=== PATIENT | female | born 2005 | race African-American/Black ===

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

== ENCOUNTER 2024-04-18 13:23 | Emergency (ER) | payer OTHER, SELFPAY ==
--- NOTE | ~2024-04-18 | CT_ITS ---
CT abdomen pelvis w con Ordering provider: Babar Belle APRN History: 19 years Female with . abd pain n/v . Comparison: None. Technique: CT abdomen and pelvis with IV and without oral contrast. Automated exposure control and it erative reconstruction technique were employed. The dose-length product was 265.39 mGy-cm. 100 mL Omn ipaque 350 was given IV. Findings: VISUALIZED LOWER CHEST: Normal. UPPER ABDOMINAL ORGANS: Liver: Normal. Gallbladder: Normal. Spleen: Normal. Stomach/duodenum: Normal. Pancreas: Normal. Adrenals: Normal. Kidneys: Normal. PELVIC ORGANS: The bladder is normal. Minimal fluid is seen in the uterus. BOWEL AND MESENTERY: Colon: No evidence diverticulitis. Fecal material is loaded in the colon and rectum which may indicat e constipation. No evidence of appendicitis. Small Bowel: Normal. No obstruction. Peritoneum/mesentery: No free air or free fluid. No mesenteric lymphadenopathy. RETROPERITONEUM: Normal aorta. No retroperitoneal lymphadenopathy. MUSCULOSKELETAL: Superficial soft tissues: The superficial soft tissues are normal. Bones: Normal spine. IMPRESSION: 1. No acute abdominal process with no evidence of appendicitis, diverticulitis or intestinal obstruc tion. No renal stones. 2. Impacted fecal material in the rectum which may indicate constipation. 3. Minimal fluid in the uterine cavity. Correlate with menstrual cycle. . Reviewed, dictated and finalized at location A. IMPRESSION: 1. No acute abdominal process with no evidence of appendicitis, diverticulitis or intestinal obstruction. No renal stones. 2. Impacted fecal material in the rectum which may indicate constipation. 3. Minimal fluid in the uterine cavity. Correlate with menstrual cycle. .
[2024-04-18 14:01] VITALS: BP 104/69; PULSE 113; RESP 17; TEMP 37.7; O2SAT 99
--- NOTE | 2024-04-18 14:25 | ECG_ITS ---
Test Date: 2024-04-18 15:05:58 Measurements Intervals [place] Rate: 91 P: 63 KS: 173 QRS: 60 QRSD: 97 T: 70 QT: 347 QTc: 429 Interpretive Statements SINUS RHYTHM INCOMPLETE RIGHT BUNDLE BRANCH BLOCK BORDERLINE ECG No previous ECG available for comparison Electronically Signed On 04-18-2024 15:10:45 CDT by Colby Iglesias D.O.
--- NOTE | 2024-04-18 14:25 | ED.ABDPAIN ---
HPI - Abdominal Pain General Chief Complaint: Abdominal Pain Stated Complaint: abd pain Time Seen by Provider: 04/18/24 14:05 Source: patient Mode of arrival: ambulatory Limitations: no limitations History of Present Illness HPI narrative: Mery is a 19-year-old female patient presenting to the emergency room today with complaints of body aches, dizziness, mild abdominal discomfort, chills, and vomiting. Has a temperature 37.7? C in the ER today. She feels unsteady on her feet. When she goes to stand she feels as though she is falling back. Symptoms have been going on for 3 days. Mother is being seen in the ER for very similar symptoms. Related Data Allergies Allergy/AdvReac Type Severity Reaction Status Date / Time No Known Allergies Allergy Verified 04/18/24 14:04 Review of Systems Review of Systems: Pertinent positives per HPI. Patient denies any fever, chills, rash, headache, visual changes, dizziness, cough, runny nose, sore throat, shortness of breath, chest pain, palpitations, nausea, vomiting, diarrhea, constipation, abdominal pain, or any urinary issues. PMFSH Comments At the time of my signature, I reviewed and agree with the nursing past medical, surgical, social, and family history. There is no relevant family history pertinent to the patient complaint. Exam Narrative: General: Well-developed, well nourished, in no apparent distress. Head: Normocephalic, atraumatic. Cardio: Regular rate and rhythm, s1 and s2 normal, no murmur appreciated. Resp: Clear to auscultation bilaterally, no rhonchi, rales, wheezing or rubs. Abdomen: Soft, pliable, bowel sounds present in all quadrants, mild generalized tender to palpation, no organomegly, no CVAT tenderness. Musculoskeletal: No deformity, non-tender to palpation, grossly normal range of motion, muscle strength strong and equal, peripheral pulse strong, no edema, no cyanosis, normal gait and station Neuro: Alert and oriented x4 with normal speech, no focal deficits, cranial nerves I through XII intact, muscle strength 5 out of 5, sensation intact bilaterally, negative Romberg test Course Course Emergency Course: Portions of this record may have been created with voice recognition software. Vital Signs Vital signs: Vital Signs Temperature 37.7 C H 04/18/24 14:01 Pulse Rate 113 H 04/18/24 14:01 Respiratory Rate 17 04/18/24 14:01 Blood Pressure 104/69 04/18/24 14:01 Pulse Oximetry 99 04/18/24 14:01 Oxygen Delivery Room Air 04/18/24 14:01 Temperature 37.7 C H 04/18/24 14:01 Pulse Rate 113 H 04/18/24 14:01 Respiratory Rate 17 04/18/24 14:01 Blood Pressure 104/69 04/18/24 14:01 Pulse Oximetry 99 04/18/24 14:01 Oxygen Delivery Room Air 04/18/24 14:01 Vital signs reviewed MDM - Abdominal Pain MDM Narrative Medical decision making narrative: At the time of visit patient is resting comfortably on the exam table. Patient appears to be nontoxic. EKG: EKG shows normal sinus rhythm with heart rate of 91 beats per minute. No ST elevation, depression, or T-wave inversion. Labs: CBC shows white blood cell count of 6.7, H&H 11.4 and 33.8, platelet counts 108, chemistry shows sodium 134, potassium 3.4, chloride of 99, when excited 24, BUN 12, creatinine 1.1, GFR greater than 60, glucose 135, liver function test within normal limits, lipase is 24, urinalysis shows cloudy urine with 2+ protein 1+ ketone, 1+ bilirubin, and a trace of leukocytes,urine test was negative for , COVID, flu, and RSV testing were negative. Diagnostics: CT of the abdomen with contrast shows likely constipation. No other acute intra-abdominal process Medications given: 4 mg of Zofran and 2 L of normal saline IV Plan: I suspect patient has constipation, anemia, thrombocytopenia, viral syndrome, and dehydration.Supportive measures were discussed with the patient and they voiced understanding discharge instructions and agrees to tr
[2024-04-18 14:51] LABS: Basophils Percent Auto 0.3 % (0.2-1.2); Hematocrit 33.8 % (37.0-47.0); Hemoglobin 11.4 g/dL (12.0-15.0); Immature Granulocyte Absolute 0.05 K/mm3 (0.00-0.031); Immature Granulocyte Percent A 0.7 % (0-0.5); Immature Platelet Fraction Pct 1.3 % (0.9-11.2); Lymphocytes Absolute Auto 0.82 K/mm3 (0.9-3.2); Lymphocytes Percent Auto 12.2 % (18.3-44.2); Mean Corpuscular HGB Conc 33.7 g/dl (32-36); Mean Corpuscular Hemoglobin 28.4 pg (26-34); Mean Corpuscular Volume 84.3 fl (80-100); Mean Platelet Volume 8.5 fl (7.4-10.4); Monocytes Absolute Auto 1.1 K/mm3 (0.1-0.6); Monocytes Percent Auto 16.7 % (2.6-8.5); Neutrophils Absolute Auto 4.7 K/mm3 (1.3-6.7); Neutrophils Percent Auto 70.1 % (45.5-73.1); Platelet Count Result 108 k/mm3 (150-375); Red Blood Count 4.01 M/mm3 (4.2-5.4); Red Cell Distribution Width 12.7 % (11.5-14.5); White Blood Count 6.7 K/mm3 (4.5-10.0)
[2024-04-18 14:58] LABS: Alanine Aminotransferase 17 U/L (6-35); Albumin Level 3.9 g/dL (3.5-5.1); Alkaline Phosphatase 46 U/L (38-126); Anion Gap 11 mmol/L (4-12); Aspartate Amino Transferase 25 U/L (14-36); Bilirubin,Total 1.2 mg/dL (0.2-1.3); Blood Urea Nitrogen 12 mg/dL (7-17); Calcium 8.4 mg/dL (8.4-10.2); Carbon Dioxide 24 mmol/L (22-30); Chloride 99 mmol/L (98-107); Estimated CRCL calculation 88 ml/min; Estimated Glomerular Filt Rate > 60; Glucose 135 mg/dL (65-110); Lipase 24 U/L (23-300); Potassium 3.4 mmol/L (3.4-5.0); Sodium 134 mmol/L (137-145)
[2024-04-18] MEDS: ONDANSETRON INJ 4 MG/2 ML VIAL IV PUSH (15:09)
[2024-04-18] MEDS: SODIUM CHLORIDE 0.9% IV 1,000 ML 999 ML IV CONT ×2 (15:09→17:44)
[2024-04-18 15:14] VITALS: BP 101/74; PULSE 87; RESP 14; O2SAT 99
[2024-04-18 15:29] LABS: Influenza A QL RT-PCR Negative (Negative); Influenza B QL RT-PCR Negative (Negative); RSV RNA, RT-PCR Negative (Negative); SARS-CoV-2 RNA PCR Negative (Negative)
[2024-04-18 16:24] VITALS: BP 100/64; PULSE 76; RESP 14; O2SAT 99
[2024-04-18 16:25] LABS: BEDSIDEPREGUCG Negative
[2024-04-18 16:30] LABS: Appearance Urine Cloudy (Clear); Bacteria Urine None Seen /hpf; Bilirubin Urine 1+ (Negative); Blood Urine Negative (Negative); Color Urine Dark Yellow (Yellow); Glucose Urine UA Negative (Negative); Ketones Urine 1+ mg/dL (Negative); Leukocyte Esterase Ur Trace LEU/UL (Negative); Mucus Urine Present /lpf; Need Manual Microscopic Reviewed; Nitrate Urine Negative (Negative); Protein Urine 2+ mg/dL (Negative); RBC Urine 0-2 /hpf (0-2); Specific Grav Ur 1.028 (1.001-1.035); Squamous Epithelial Cell Urine Few /hpf (Few); WBC Urine 0-5 /hpf (0-3)
[2024-04-18 16:31] LABS: Add Urine Microscopic? YES
[2024-04-18 17:23] VITALS: BP 102/59; PULSE 71; RESP 14; O2SAT 99
[2024-04-18 18:18] VITALS: BP 99/62; PULSE 63; RESP 14; O2SAT 100
[2024-04-18] MEDS: ACETAMINOPHEN 500 MG TABLET 1000 MG PO (18:50)
== END 2024-04-18 18:50 | disposition home or self-care (01) ==
PROVIDERS: Emergency Provider Nurse Practitioner Family; PCP Physician Assistant
DX: B34.9 Viral infection, unspecified (principal); E86.0 Dehydration; K59.00 Constipation, unspecified; D75.839 Thrombocytosis, unspecified; D64.9 Anemia, unspecified; Z20.822 Contact with and (suspected) exposure to COVID-19
CPT/HCPCS: 36415; 74177; 80053; 81001; 81025; 83690; 85025; 85055; 87637; 93005; 96361; 96374; 99284; A9270; J2405; J7030; Q9967

== ENCOUNTER 2024-04-20 12:23 | Inpatient (IN) | payer OTHER, SELFPAY ==
[2024-04-20] VITALS (29 sets, daily range): BP systolic 72–111; BP diastolic 39–99; PULSE 81–134; RESP 15–30; TEMP 36.4–37.1; O2SAT 97–100; BMI 22.3
--- NOTE | ~2024-04-20 | CT_ITS ---
EXAMINATION: CT abdomen pelvis w con DATE: 04/20/2024 16:17 INDICATION: Diarrhea. TECHNIQUE: Computed tomography (CT) of the abdomen and pelvis was performed with 100 mL Omnipaque 350 intravenous contrast. Automated exposure control and iterative reconstruction technique were employe d. The dose-length product was 278.38 mGy-cm. COMPARISON: CT abdomen and pelvis 04/18/2024 FINDINGS: The visualized portions of the lung bases demonstrate minimal atelectasis. No pleural effus ion. The heart size is normal. No pericardial effusion. The liver, gallbladder, spleen, pancreas, adr enal glands, and kidneys are normal. There are no dilated loops of bowel. The appendix is normal. The re are no pathologically enlarged lymph nodes. There is physiologic fluid in the pelvis. The bones ar e unremarkable. IMPRESSION: 1. No etiology for the patient's symptoms. Reviewed, dictated and finalized at location A.
--- NOTE | ~2024-04-20 | XR_ITS ---
XR chest 2V Ordering provider: Osbaldo Funk MD History: 19 years Female with . malaria . Comparison: July 11, 2022 FINDINGS: MEDIASTINUM: The cardiac silhouette is not enlarged. LUNGS: No infiltrates, or pneumothorax. Blunting of the left costophrenic angle suggestive of minimal effusion. OTHER: No free air under the diaphragm. IMPRESSION: Minimal left pleural effusion. Reviewed, dictated and finalized at location A.
[2024-04-20] MEDS: ONDANSETRON INJ 4 MG/2 ML VIAL IV PUSH ×2 (12:56→20:49)
[2024-04-20] MEDS: SODIUM CHLORIDE 0.9% IV 3,000 ML 999 ML IV CONT (12:56)
[2024-04-20 13:14] LABS: Basophils Percent Auto 0.5 % (0.2-1.2); Hematocrit 33.7 % (37.0-47.0); Hemoglobin 11.2 g/dL (12.0-15.0); Immature Granulocyte Absolute 0.06 K/mm3 (0.00-0.031); Immature Granulocyte Percent A 1.4 % (0-0.5); Immature Platelet Fraction Pct 3.4 % (0.9-11.2); Lymphocytes Absolute Auto 0.76 K/mm3 (0.9-3.2); Mean Corpuscular HGB Conc 33.2 g/dl (32-36); Mean Corpuscular Hemoglobin 28.1 pg (26-34); Mean Corpuscular Volume 84.5 fl (80-100); Mean Platelet Volume 10.4 fl (7.4-10.4); Monocytes Absolute Auto 0.2 K/mm3 (0.1-0.6); Neutrophils Absolute Auto 3.2 K/mm3 (1.3-6.7); Neutrophils Percent Auto 75.1 % (45.5-73.1); Nucleated Red Blood Cells Perc 0.5 % (0.0-0.2); Platelet Count Result 50 k/mm3 (150-375); Red Blood Count 3.99 M/mm3 (4.2-5.4); Red Cell Distribution Width 13.6 % (11.5-14.5); White Blood Count 4.2 K/mm3 (4.5-10.0)
[2024-04-20 13:35] LABS: Alanine Aminotransferase 20 U/L (6-35); Albumin Level 3.4 g/dL (3.5-5.1); Alkaline Phosphatase 61 U/L (38-126); Anion Gap 12 mmol/L (4-12); Aspartate Amino Transferase 39 U/L (14-36); Bilirubin,Total 2.4 mg/dL (0.2-1.3); Blood Urea Nitrogen 14 mg/dL (7-17); Calcium 8.4 mg/dL (8.4-10.2); Carbon Dioxide 21 mmol/L (22-30); Chloride 101 mmol/L (98-107); Estimated CRCL calculation 71 ml/min; Estimated Glomerular Filt Rate > 60; Glucose 121 mg/dL (65-110); Potassium 2.7 mmol/L (3.4-5.0); Sodium 134 mmol/L (137-145)
[2024-04-20 13:51] LABS: BEDSIDEPREGUCG Negative
[2024-04-20 14:06] LABS: Influenza A QL RT-PCR Negative (Negative); Influenza B QL RT-PCR Negative (Negative); RSV RNA, RT-PCR Negative (Negative); SARS-CoV-2 RNA PCR Negative (Negative)
[2024-04-20] MEDS: POTASSIUM CHLORIDE INJ 40 MEQ in SODIUM CHLORIDE 0.9% IV 500 ML 130 MEQ IVPB (14:10)
[2024-04-20 14:12] LABS: Amphetamine Screen Urine Negative (Negative); Barbiturate Screen Urine Negative (Negative); Benzodiazepines Screen Urine Negative (Negative); Cannabinoid Screen Urine Negative (Negative); Cocaine Screen Urine Negative (Negative); Methadone Screen Urine Negative (Negative); Opiate Screen Urine Negative (Negative); Phencyclidine Screen Urine Negative (Negative)
[2024-04-20 14:13] LABS: Appearance Urine Turbid (Clear); Bacteria Urine None Seen /hpf; Bilirubin Urine 2+ (Negative); Blood Urine Trace (Negative); Color Urine Orange (Yellow); Glucose Urine UA Negative (Negative); Granular Casts Urine Present /lpf; Ketones Urine Trace mg/dL (Negative); Leukocyte Esterase Ur 1+ LEU/UL (Negative); Need Manual Microscopic Reviewed; Nitrate Urine Positive (Negative); Non Pathogenic Casts >20; Protein Urine 2+ mg/dL (Negative); RBC Urine 0-2 /hpf (0-2); Specific Grav Ur 1.022 (1.001-1.035); Squamous Epithelial Cell Urine Many /hpf (Few); pH Urine 5.5 (5.0-9.0)
[2024-04-20 14:14] LABS: Lipase 59 U/L (23-300); Magnesium 1.5 mg/dL (1.6-2.3)
[2024-04-20 14:14] LABS: Add Urine Microscopic? YES
--- NOTE | 2024-04-20 14:23 | PC.NURSE ---
Pt refusing PO potassium a this time due to not having much oral intake recently. EDP Dr. Saini aware and OK with holding PO potassium at this time since IV potassium is currently running.
[2024-04-20] MEDS: LACTATED RINGERS 1,000 ML 999 ML IV CONT (15:27)
[2024-04-20] MEDS: METOCLOPRAMIDE HCL INJ 10 MG/2 ML VIAL IV PUSH (15:27)
--- NOTE | 2024-04-20 15:38 | ED.GENADULT ---
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 Patient was seen on the along with her mother when both had similar symptoms. That time she was rehydrated and discharged back home. However says that she has continued to have n/v/d. She is unable to tolerate foods but has been drinking sips of water. She has now become more weak. She then re-presented to the ED for evaluation. She denies fevers chills chest pain difficulty breathing or abdominal pain. No urinary symptoms. Patient recently travel to [facility] 3 weeks ago. Symptoms started 2 weeks after she returned home. Related Data Allergies Allergy/AdvReac Type Severity Reaction Status Date / Time No Known Allergies Allergy Verified 04/20/24 12:23 Exam Narrative: APPEARANCE: Listless Head: atraumatic. EYES: EOMI, NOSE: Atraumatic NECK: Trachea midline RESPIRATORY: Tachypneic, clear to auscultation CARDIOVASCULAR: Tachycardic, no peripheral edema ABDOMINAL: Soft nontender no guarding or rebound MUSCULOSKELETAl: No obvious deformities NEURO: Alert. Moving 4/4 extremities SKIN:: Warm, dry. Normal color PSYCHIATRIC: Normal affect Course Vital Signs Vital signs: Vital Signs Temperature 98.8 F 04/20/24 12:24 Pulse Rate 134 H 04/20/24 12:24 Respiratory Rate 20 04/20/24 12:24 Blood Pressure 84/49 L 04/20/24 12:24 Pulse Oximetry 99 04/20/24 12:24 Oxygen Delivery Room Air 04/20/24 12:24 Temperature 98.0 F 04/20/24 14:26 Pulse Rate 112 H 04/20/24 15:31 Respiratory Rate 24 H 04/20/24 15:31 Blood Pressure 86/45 L 04/20/24 15:31 Pulse Oximetry 100 04/20/24 15:31 Oxygen Delivery Room Air 04/20/24 12:24 Medical Decision Making [facility] Narrative Medical decision making narrative: -Course: This is a 19-year-old female presenting with 5 days of nausea vomiting diarrhea. On arrival to ED the patient was hypotensive at 80/50, tachycardic in the 130s and listless. Patient has multiple electrolyte abnormalities including hypokalemia 2.7, magnesium 1.5 phosphorus of 1.0. These are being repleted. CT abdomen pelvis negative. Urine had 6-10 white blood cells with +1 leuk esterase and positive nitrites. Patient will be started ceftriaxone. After 4 L of crystalloid the patient's repeat blood pressure is 92/57. Patient started on maintenance fluid. Patient will be admitted to the hospital for further management. -DDX includes but is not limited to: Profound dehydration, gastroenteritis, electrolyte abnormalities, traveler's diarrhea -Independent interpretation of studies: CBC significant for platelet count of 50. This is down from 108 on her last admission. Potassium 2.7. Magnesium 1.5. Phosphorus 1.0. These are being repleted. Urine with 6-10 white blood cells, +1 leuk esterase and positive nitrates. Were many squamous cells but should be covered with ceftriaxone until culture results for return. UDS negative. Viral swabs negative CT abdomen pelvis unremarkable. -Discussion of Management/Consultants: Flores -Shared decision making / Disposition:admitted. Vital Signs Vital Signs: Vital Signs Temperature 98.8 F 04/20/24 12:24 Pulse Rate 134 H 04/20/24 12:24 Respiratory Rate 20 04/20/24 12:24 Blood Pressure 84/49 L 04/20/24 12:24 Pulse Oximetry 99 04/20/24 12:24 Oxygen Delivery Room Air 04/20/24 12:24 Temperature 98.0 F 04/20/24 14:26 Pulse Rate 112 H 04/20/24 15:31 Respiratory Rate 24 H 04/20/24 15:31 Blood Pressure 86/45 L 04/20/24 15:31 Pulse Oximetry 100 04/20/24 15:31 Oxygen Delivery Room Air 04/20/24 12:24 Lab Data 04/20/24 12:54 04/20/24 12:54 Labs: Lab Results 04/20/24 04/20/24 07
[2024-04-20] MEDS: POTASSIUM/PHOSPHORUS/SODIUM 1.5 GM PACKET 1 PACKET PO (16:03)
[2024-04-20] MEDS: LACTATED RINGERS 1,000 ML 150 ML IV CONT (16:34)
[2024-04-20 17:08] LABS: Anion Gap 9 mmol/L (4-12); Blood Urea Nitrogen 12 mg/dL (7-17); Calcium 6.9 mg/dL (8.4-10.2); Carbon Dioxide 21 mmol/L (22-30); Chloride 106 mmol/L (98-107); Estimated CRCL calculation 83 ml/min; Estimated Glomerular Filt Rate > 60; Glucose 106 mg/dL (65-110); Magnesium 1.4 mg/dL (1.6-2.3); Phosphorus 2.5 mg/dL (2.5-4.5); Potassium 3.5 mmol/L (3.4-5.0); Sodium 136 mmol/L (137-145)
[2024-04-20] MEDS: CALCIUM GLUC 2,000 MG/NS 100ML 2,000 MG/100 ML BAG 100 MG IVPB (18:08)
--- NOTE | 2024-04-20 18:15 | ADMGEN ---
This patient, Mery Guido, was admitted to IMU Room 201-01. Patient/family oriented to hospital policies and general routines including ID bracelet, bed and alarms, visiting hours, pain management, procedures, bathroom and other care routines, personal items, smoking policy, room service/diet, and visiting hours. Information on how to activate the Rapid Response Team has been discussed. Patient/Family are encouraged to report perceived risks to care and to ask questions if they do not understand what they are told or what they should do.
--- NOTE | 2024-04-20 18:20 | PC.NURSE ---
Patient arrived to the floor at 1800pm, via stretcher from the ER. Alert and oriented, very pleasant young lady in no acute distress at this time. Vital signs stable, (see vital sign flow sheet). Currently on room air, lung sounds clear on auscultation, however patient is noted to have a harsh sounding cough. Heart rate is 96, in normal sinus rhythm at this time. Medications that were previously ordered to be given in the ER were started on admission to the floor, (see MAR). States last bowel movement was today 04/20/24 (x2). No vomiting noted at this time. The patient is complaining of abdominal discomfort. Clear, soda given to the patient and sips taken. Tolerating at this time. Skin is intact. Patient made aware of plan of care including current medication regimen and denies questions at this time.
[2024-04-20] MEDS: MAGNESIUM SULF 2 GM/WATER 50ML 2 GM/50 ML BAG IVPB (18:22)
[2024-04-20] MEDS: ALBUMIN HUMAN 5% 25 GM/500 ML BTL IV CONT (20:53)
--- NOTE | 2024-04-20 21:22 | PM.IMHP ---
H&P: HPI History of Present Illness Date/Time: 04/20/24 19:00 Chief Complaint: Nausea and vomiting. Narrative: This is a very pleasant and previously healthy 19-year-old female who presented to the emergency department via private vehicle for evaluation of nausea and vomiting. The patient provides the following history. She and her mother were in [place] from March 29 through April 13 and they both fell ill 3 days after they returned. Symptoms include headache, dry cough, mild shortness of breath, chills, sweats, low-grade fever, anorexia, mild abdominal discomfort, nausea, vomiting, and 2 loose yellow stools yesterday. She was seen in the ED 2 days ago for evaluation and it was felt that she likely had a viral syndrome. She received supportive care and was discharged home with close follow-up and reasons to return. Unfortunately she continues to feel poorly. She has not even been able to hold down sips of water for longer than a few minutes, she is increasingly weak, and is getting lightheaded and dizzy on standing. She denies syncope, confusion, photophobia, neck pain, otalgia, odynophagia, jaundice, rash, joint swelling, epistaxis, gingival bleeding, hemoptysis, melena, hematochezia, hematuria, and dysuria. She did not take chemoprophylaxis for malaria and denies receiving vaccinations prior to traveling to [facility]. Mosquitos were bad and she had many bites. She denies tick bites and sand fly bites. In the ED: She was afebrile on arrival. Blood pressures have been in the mid 80s to low 100 systolic. She is tachycardic with heart rates in the low 100s. Labs are significant for a WBC count of 4.2, hemoglobin 11.2, hematocrit 33.7%, platelet 50, sodium 134, potassium 2.7, chloride 101, carbon dioxide 21, anion gap 12, BUN 14, creatinine 1.30, glucose 121, phosphorus 1.0, magnesium 1.5, total bilirubin 2.4, AST 39. Urinalysis was positive for 2+ protein, trace ketones, nitrates, 1+ leukocyte esterase, 2+ bilirubin, and 6 to 10 WBCs. No bacteria and many squamous cells were seen on microscopy. CT of the abdomen and pelvis was without acute findings. Review of Systems Review of Systems: 12 systems were reviewed and are negative except for as per HPI. [facility] Past Medical History Medical History (Updated 04/20/24 @ 22:17 by Sophia Carpio PA-C) No significant past medical history Surgical History Surgical History (Updated 04/20/24 @ 21:59 by Sophia Carpio PA-C) No history of previous surgery Family History Family History Other No family history of disorders Social History Social History (Updated 04/20/24 @ 22:00 by Sophia Carpio PA-C) Social History: Surrogate medical decision maker: Isha James, mother. Code status: Full code. Smoking status: Never smoker Alcohol intake: never Substance use: never Substance use type: does not use Do You Feel Safe in your Home?: Yes Lack of Transportation: No Lack of Food: Never True Current Housing: I Have Housing Concerned About Future Housing: YES Difficulty Paying Gas/Electric Bills: YES Difficulty Paying for Meds: YES Currently Unemployed: No Education: Decline to Answer Difficulty w/ Childcare or Family Care: No Additional living arrangements comments: Lives with mother in [place]. Additional occupation/education comments: Student at [employer] studying sciences/[employer]. She wants to be an orthopedic surgeon. Spiritual care concerns: No Meds Home Medications and Allergies Home Medications Medication Instructions Recorded Confirmed Type acetaminophen 325 mg tablet 325 mg PO Q6H PRN Fever Or Pain 04/20/24 04/20/24 History (Tylenol) ibuprofen 200 mg tablet 400 mg PO Q6H PRN Fever Or Pain 04/20/24 04/20/24 History Allergies Allergy/AdvReac Type Severity Reaction Status Date / Time No Known Allergies Allergy Verified 04/20/24 12:23 Vital Signs Vital Si
[2024-04-20 22:46] LABS: Immature Reticulocyte Fraction 8.6 % (3.0-15.9); Reticulocyte Percent 2.66 % (0.7-4.3); Reticulocytes Absolute 0.08 10^6/uL (0.02-0.10)
[2024-04-20 22:56] LABS: Bilirubin,Total 1.7 mg/dL (0.2-1.3); Lactate Dehydrogenase 595 U/L (120-246)
[2024-04-20 22:57] LABS: INR 1.3; Prothrombin Time 17.2 Seconds (11.1-14.7)
[2024-04-20 22:58] LABS: Partial Thromboplastin Time 37.7 Seconds (22.3-36.8)
[2024-04-20 22:59] LABS: Anion Gap 7 mmol/L (4-12); Blood Urea Nitrogen 9 mg/dL (7-17); Calcium 7.7 mg/dL (8.4-10.2); Carbon Dioxide 23 mmol/L (22-30); Chloride 107 mmol/L (98-107); Estimated CRCL calculation 119 ml/min; Estimated Glomerular Filt Rate > 60; Glucose 120 mg/dL (65-110); Magnesium 2.1 mg/dL (1.6-2.3); Potassium 3.5 mmol/L (3.4-5.0); Sodium 137 mmol/L (137-145)
[2024-04-20 23:08] LABS: Erythrocyte Sedimentation Rate 86 mm/hr (0-20)
[2024-04-20 23:14] LABS: CRP 20.3 mg/dL (<1.0)
[2024-04-20 23:25] LABS: Iron 19 ug/dL (37-170)
[2024-04-20 23:34] LABS: Percent Iron Saturation 8 % (20-50)
[2024-04-20 23:43] LABS: Procalcitonin 36.7 ng/mL
[2024-04-20 23:57] LABS: Hepatitis B Surface Antigen Negative (Negative)
[2024-04-21] VITALS (24 sets, daily range): BP systolic 103–110; BP diastolic 49–66; PULSE 66–111; RESP 13–20; TEMP 36.4–40.5; O2SAT 97–100; BMI 21.9
[2024-04-21 00:02] LABS: Folic Acid 10.5 ng/mL (2.76->20)
[2024-04-21 00:03] LABS: HAV RESULT Negative (Negative); Hepatitis B Core IgM Result Negative (Negative)
[2024-04-21 00:15] LABS: Hepatitis C Virus Antibody Negative (Negative)
[2024-04-21 01:20] LABS: HIV 1/2 Ab P24 Ag 7.88
[2024-04-21 01:21] LABS: HIV 1/2 Ab P24 Ag Result Reactive (Negative)
[2024-04-21 01:25] LABS: HIVc Retest 1 5.71; HIVc Retest 2 5.64
[2024-04-21 04:44] LABS: Free T4 Free Thyroxine Reflex 1.28 ng/dL (0.78-2.19)
[2024-04-21 05:56] LABS: Total Triiodothyronine (T3) 0.59 NG/ML (0.97-1.69)
[2024-04-21] MEDS: TRIMETHOBENZAMIDE HCL 200 MG/2 ML VIAL IM ×2 (06:42→13:18)
[2024-04-21] MEDS: ACETAMINOPHEN 325 MG TABLET 650 MG PO ×4 (06:50→21:02)
--- NOTE | 2024-04-21 09:20 | PM.IMPN ---
Progress Note: A&P Assessment and Plan (1) Dehydration: Code(s): E86.0 - Dehydration Status: Acute (2) Electrolyte abnormality: Code(s): E87.8 - Other disorders of electrolyte and fluid balance, not elsewhere classified Status: Acute (3) Thrombocytopenia: Code(s): D69.6 - Thrombocytopenia, unspecified Status: Inactive (4) Hypotension: Code(s): I95.9 - Hypotension, unspecified Status: Acute (5) Abnormal urinalysis: Code(s): R82.90 - Unspecified abnormal findings in urine Status: Acute (6) Hyperbilirubinemia: Code(s): E80.6 - Other disorders of bilirubin metabolism Status: Acute (7) Normocytic anemia: Code(s): D64.9 - Anemia, unspecified Status: Acute Plan The patient returned back to the emergency department for evaluation of ongoing symptoms for the past 5 days to include fever, chills, sweats, headache, anorexia, nausea, vomiting, and a couple of loose stools as detailed in HPI. Labs, imaging, EKG, and all reports were personally reviewed. She was in [place] for 2 weeks earlier this month and fell ill a few days after returning. Chemoprophylaxis for malaria was not taken and she did not have any vaccinations prior to travel. Her symptoms and history are concerning for malaria and a STAT malaria smear has been ordered. Differential diagnosis does include other mosquito borne illnesses (dengue fever, chikungunya, yellow fever, zika). She denies tick and sand fly bites making tick bite fever, hemorrhagic fever, and leishmaniasis unlikely. She was not in freshwater and did not drink contaminated water making leptospirosis unlikely. Hepatitis, typhoid, and cholera also seem unlikely and this is not a predominantly diarrheal illness. For now we will continue supportive care including IV fluid rehydration and aggressive electrolyte replacement. She received ceftriaxone in the emergency department which will be continued pending urine culture. Labs and vital signs will be monitored closely. Findings and treatment plan were discussed with the patient. Questions were solicited and answered to satisfaction. The patient's medical management will be taken over by the hospitalist team in a.m. 04/21 Labs report, blood smears showed possible ring form parasite, suspecting malaria. pt is on Coartem Anemia and thrombocytopenia HB continues to drop from 11.4 on a arrival to 9.2 platelets drops fall 108 upon arrival to 53 Elevated total bilirubin, direct bilirubin negative Likely resulting from Malaria infection Follow-up CBC CMP q.12 hour per [facility] ID recommendation UA c/w CTX HIV infection HIV AB/AG positive no hx of HIV infection I have requested to transfer the patient to [facility] and [place], [facility] declined to accept the patient and asked me to contact with [facility] [place]. Thank [facility], they accept the patient to medical ICU that is recommended by ID physician Dr. Montesinos. Subjective Date/time seen: 04/21/24 09:20 Interval history: I saw examined the patient today, patient still has nausea vomiting, severe headache. Patient denies focal weakness, vision change, patient is alert oriented. Patient denies bloody stools. Exam Narrative: GENERAL: Ill-appearing, in no acute distress. Well-nourished. - EYES: EOMI. Anicteric. - HENT: Moist mucous membranes. Mild jaundice - LUNGS: Clear to auscultation bilaterally, no wheezing, rhonchi, or rales. - CARDIOVASCULAR: Regular rate and rhythm. No murmur. No JVD. - ABDOMEN: Soft, right upper quadrant tender and non-distended. No palpable masses. - EXTREMITIES: No edema. Peripheral pulses 2+. Non-tender. - NEUROLOGIC: No focal neurological deficits. CN II-XII grossly intact. - PSYCHIATRIC: Awake, Alert and oriented x 3. Appropriate mood and affect. - SKIN: No rashes or lesions. Warm. - LYMPH: No cervical lymphadenopathy. Objective Data Vital Signs Vital Signs: Vital Signs - 24 hr 04/20/24 12:24
[2024-04-21 10:34] LABS: Basophils Percent Auto 0.2 % (0.2-1.2); Eosinophils Percent Auto 0.9 % (0-4.4); Hematocrit 28.2 % (37.0-47.0); Hemoglobin 9.2 g/dL (12.0-15.0); Immature Granulocyte Absolute 0.07 K/mm3 (0.00-0.031); Immature Granulocyte Percent A 1.6 % (0-0.5); Lymphocytes Absolute Auto 1.39 K/mm3 (0.9-3.2); Mean Corpuscular HGB Conc 32.6 g/dl (32-36); Mean Corpuscular Hemoglobin 27.9 pg (26-34); Mean Corpuscular Volume 85.5 fl (80-100); Monocytes Absolute Auto 0.3 K/mm3 (0.1-0.6); Monocytes Percent Auto 7.8 % (2.6-8.5); Neutrophils Absolute Auto 2.5 K/mm3 (1.3-6.7); Neutrophils Percent Auto 57.5 % (45.5-73.1); Platelet Count Result 53 k/mm3 (150-375); Red Cell Distribution Width 14.6 % (11.5-14.5); White Blood Count 4.4 K/mm3 (4.5-10.0)
[2024-04-21 10:42] LABS: Alanine Aminotransferase 32 U/L (6-35); Albumin Level 3.1 g/dL (3.5-5.1); Alkaline Phosphatase 48 U/L (38-126); Anion Gap 7 mmol/L (4-12); Aspartate Amino Transferase 47 U/L (14-36); Bilirubin,Total 1.9 mg/dL (0.2-1.3); Blood Urea Nitrogen 8 mg/dL (7-17); Carbon Dioxide 25 mmol/L (22-30); Chloride 105 mmol/L (98-107); Estimated CRCL calculation 134 ml/min; Estimated Glomerular Filt Rate > 60; Glucose 93 mg/dL (65-110); Potassium 3.3 mmol/L (3.4-5.0); Sodium 137 mmol/L (137-145)
[2024-04-21 11:16] LABS: Platelet Estimate Decreased (Adequate)
[2024-04-21 11:17] LABS: Schistocytes None Seen
[2024-04-21] MEDS: HYDROmorphone HCL INJ (*CRX) 1 MG/ML SYR 0.5 MG IV PUSH (14:04)
--- NOTE | 2024-04-21 14:59 | PC.NURSE ---
[facility] reports pt will be going to a medical floor as high priority with an ID consult. No beds available at this time.
--- NOTE | 2024-04-21 16:06 | PC.NURSE ---
Dr. Gutierres made aware of oral temp of 105. New orders noted for one time dose of Tylenol. Please see MAR.
--- NOTE | 2024-04-21 17:47 | PC.NURSE ---
Dr. Gutierres updated that temp is now 103.9. Urine color is dark eron. New orders for NS at 150 continuous. Will monitor temp for now.
[2024-04-21] MEDS: SODIUM CHLORIDE 0.9% IV 1,000 ML 150 ML IV CONT (18:02)
[2024-04-22] VITALS (14 sets, daily range): BP systolic 99–113; BP diastolic 51–74; PULSE 61–87; RESP 16–24; TEMP 36.7–37.6; O2SAT 92–100
[2024-04-22 00:44] LABS: Basophils Percent Auto 0.3 % (0.2-1.2); Eosinophils Percent Auto 0.3 % (0-4.4); Hematocrit 23.5 % (37.0-47.0); Hemoglobin 7.8 g/dL (12.0-15.0); Immature Granulocyte Absolute 0.07 K/mm3 (0.00-0.031); Immature Granulocyte Percent A 1.9 % (0-0.5); Immature Platelet Fraction Pct 3.5 % (0.9-11.2); Lymphocytes Absolute Auto 1.25 K/mm3 (0.9-3.2); Lymphocytes Percent Auto 33.7 % (18.3-44.2); Mean Corpuscular HGB Conc 33.2 g/dl (32-36); Mean Corpuscular Volume 84.2 fl (80-100); Mean Platelet Volume 10.6 fl (7.4-10.4); Monocytes Absolute Auto 0.5 K/mm3 (0.1-0.6); Monocytes Percent Auto 12.1 % (2.6-8.5); Neutrophils Absolute Auto 1.9 K/mm3 (1.3-6.7); Neutrophils Percent Auto 51.7 % (45.5-73.1); Platelet Count Result 46 k/mm3 (150-375); Red Blood Count 2.79 M/mm3 (4.2-5.4); Red Cell Distribution Width 14.6 % (11.5-14.5); White Blood Count 3.7 K/mm3 (4.5-10.0)
[2024-04-22] MEDS: SODIUM CHLORIDE 0.9% IV 1,000 ML 150 ML IV CONT ×2 (00:45→07:32)
[2024-04-22 00:51] LABS: Alanine Aminotransferase 28 U/L (6-35); Albumin Level 2.5 g/dL (3.5-5.1); Alkaline Phosphatase 40 U/L (38-126); Anion Gap 7 mmol/L (4-12); Aspartate Amino Transferase 44 U/L (14-36); Bilirubin,Total 1.3 mg/dL (0.2-1.3); Blood Urea Nitrogen 7 mg/dL (7-17); Calcium 7.3 mg/dL (8.4-10.2); Carbon Dioxide 23 mmol/L (22-30); Chloride 105 mmol/L (98-107); Estimated CRCL calculation 106 ml/min; Estimated Glomerular Filt Rate > 60; Glucose 91 mg/dL (65-110); Potassium 3.3 mmol/L (3.4-5.0); Sodium 135 mmol/L (137-145)
[2024-04-22 01:09] LABS: Platelet Estimate Decreased (Adequate)
[2024-04-22 01:11] LABS: Anisocytosis 1+; Burr Cells 1+; Ovalocytes 1+; Schistocytes None Seen
--- NOTE | 2024-04-22 08:34 | PC.NURSE ---
Spoke with PERICO Romero with GI and they have no input on the case at this time. Pt has been accepted to [facility] and is awaiting transfer. RN updated Dr. Funk and received new order to cancel consult.
[2024-04-22 09:10] LABS: Basophils Percent Auto 0.3 % (0.2-1.2); Eosinophils Percent Auto 0.3 % (0-4.4); Hematocrit 24.9 % (37.0-47.0); Hemoglobin 8.1 g/dL (12.0-15.0); Immature Granulocyte Percent A 2.6 % (0-0.5); Immature Platelet Fraction Pct 3.3 % (0.9-11.2); Lymphocytes Absolute Auto 1.56 K/mm3 (0.9-3.2); Lymphocytes Percent Auto 41.3 % (18.3-44.2); Mean Corpuscular HGB Conc 32.5 g/dl (32-36); Mean Corpuscular Hemoglobin 27.8 pg (26-34); Mean Corpuscular Volume 85.6 fl (80-100); Mean Platelet Volume 10.2 fl (7.4-10.4); Monocytes Absolute Auto 0.4 K/mm3 (0.1-0.6); Monocytes Percent Auto 11.4 % (2.6-8.5); Neutrophils Absolute Auto 1.7 K/mm3 (1.3-6.7); Neutrophils Percent Auto 44.1 % (45.5-73.1); Platelet Count Result 59 k/mm3 (150-375); Red Blood Count 2.91 M/mm3 (4.2-5.4); Red Cell Distribution Width 14.9 % (11.5-14.5); White Blood Count 3.8 K/mm3 (4.5-10.0)
[2024-04-22 09:54] LABS: Anisocytosis 1+; Microcytosis 1+ (NORMAL); Platelet Estimate Decreased (Adequate)
[2024-04-22 09:55] LABS: Burr Cells 1+; Schistocytes None Seen
[2024-04-22] MEDS: POTASSIUM CHLORIDE 20 MEQ PACKET (FOR LIQUID) 40 MEQ PO (11:41)
--- NOTE | 2024-04-22 13:46 | PM.IMPN ---
Progress Note: A&P Assessment and Plan (1) Malaria: Code(s): B54 - Unspecified malaria Status: Acute Assessment and Plan: The patient prsents with fever, chills, sweats, headache, anorexia, nausea, vomiting, and loose stools. She was in [place] for 2 weeks in March and fell ill a few days after returning. Chemoprophylaxis for malaria was not taken Blood smear was ordered showing ring formation is multiple cells. Malaria smear and pathology report pending. Patient started on Artemether/lumefantrine for 6 total doses. Hepatitis panel negative. TBili trending down and now normal. hgb trending down but on IV fluids so some of this could be dilutional. Bedside test negative She remains leukopenia and thrombocytopenic. Transfer to [place] has been initiates and awaiting bed availablity. Spoke with [place] [facility] (Dr Montesinos) who recommended obtaining Artesunate given the severity and this has been ordered. He also recommended increasing labs to Q6hr. Follow labs. Start Artesunate when available. (2) HIV antibody positive: Code(s): Z21 - Asymptomatic human immunodeficiency virus [HIV] infection status Status: Acute Assessment and Plan: HIV testing was performed on admission and has returned positive for HIV-1 and/or HIV 2 Ab and positive for HIV-1 p24 Ag. Reflex HIV testing and viral load ordered and is pending Patient was made aware of this finding and that this may be a false positive. Patient denies any risk factors Follow up on final testing results. (3) Pancytopenia: Code(s): D61.818 - Other pancytopenia Status: Acute Assessment and Plan: As above. Malaria can cause thrombocytopenia and anemia. Leukopenia is usually mild. Follow and provide supportive care (4) Dehydration: Code(s): E86.0 - Dehydration Status: Acute Assessment and Plan: Related to the gastroenteritis. CT A/P showing no acute process. Nausea better but still with abd pain. No eosinophilia to suggest GI parasites Not eating much so will continue IV fluids but change to maintenance fluids. Check lipase (5) Electrolyte abnormality: Code(s): E87.8 - Other disorders of electrolyte and fluid balance, not elsewhere classified Status: Acute Assessment and Plan: Potassium low again so will replace. Add potassium to fluids since probably washing it out Mag was low on admission contributing to the low potassium and this has been replaced Phos was low on admission related to her poor oral intake and has been replaced. Continue to follow electrolytes and replace as needed (6) Hypotension: Code(s): I95.9 - Hypotension, unspecified Status: Acute Assessment and Plan: Patient presented with HoTN with SBP as low as 77. She was fluid responsive and BP improved. BP more stable now but was on NS 150mL/hr. This was decreased and BP remained stable Will change to maintenance fluids and monitor carefully (7) Hyperbilirubinemia: Code(s): E80.6 - Other disorders of bilirubin metabolism Status: Acute Assessment and Plan: TBili elevated to 2.4 that was all indirect. This has normalized now. [place] related to hemolysis and/or [place] Follow (8) Abnormal urinalysis: Code(s): R82.90 - Unspecified abnormal findings in urine Status: Acute Assessment and Plan: UA is abnormal but with many squamous cells. UCx collected. Rocephin started. UCx negative. Okay to stop Rocephin (9) Gastroenteritis: Code(s): K52.9 - Noninfective gastroenteritis and colitis, unspecified Status: Acute Assessment and Plan: As above. Monitor oral intake Plan DVT prophylaxis - increase patient's activity Code status - full Subjective Date/time seen: 04/22/24 13:46 Interval history: 19yo healthy female who presents with nausea and vomiting. She was recently in [place] and was not on malari
[2024-04-22 14:14] LABS: Basophils Percent Auto 0.3 % (0.2-1.2); Eosinophils Percent Auto 0.6 % (0-4.4); Hematocrit 24.8 % (37.0-47.0); Hemoglobin 8.1 g/dL (12.0-15.0); Immature Granulocyte Absolute 0.05 K/mm3 (0.00-0.031); Immature Granulocyte Percent A 1.4 % (0-0.5); Immature Platelet Fraction Pct 2.6 % (0.9-11.2); Lymphocytes Absolute Auto 1.49 K/mm3 (0.9-3.2); Lymphocytes Percent Auto 41.9 % (18.3-44.2); Mean Corpuscular HGB Conc 32.7 g/dl (32-36); Mean Corpuscular Hemoglobin 27.8 pg (26-34); Mean Corpuscular Volume 85.2 fl (80-100); Mean Platelet Volume 10.5 fl (7.4-10.4); Monocytes Absolute Auto 0.4 K/mm3 (0.1-0.6); Monocytes Percent Auto 11.5 % (2.6-8.5); Neutrophils Absolute Auto 1.6 K/mm3 (1.3-6.7); Neutrophils Percent Auto 44.3 % (45.5-73.1); Platelet Count Result 70 k/mm3 (150-375); Red Blood Count 2.91 M/mm3 (4.2-5.4); Red Cell Distribution Width 14.9 % (11.5-14.5); White Blood Count 3.6 K/mm3 (4.5-10.0)
[2024-04-22 14:24] LABS: Alanine Aminotransferase 27 U/L (6-35); Albumin Level 2.8 g/dL (3.5-5.1); Alkaline Phosphatase 40 U/L (38-126); Anion Gap 6 mmol/L (4-12); Aspartate Amino Transferase 37 U/L (14-36); Blood Urea Nitrogen 6 mg/dL (7-17); Calcium 7.4 mg/dL (8.4-10.2); Carbon Dioxide 26 mmol/L (22-30); Chloride 106 mmol/L (98-107); Estimated CRCL calculation 155 ml/min; Estimated Glomerular Filt Rate > 60; Glucose 90 mg/dL (65-110); Potassium 3.6 mmol/L (3.4-5.0); Sodium 138 mmol/L (137-145)
[2024-04-22 14:43] LABS: Lipase 41 U/L (23-300); Phosphorus 2.9 mg/dL (2.5-4.5)
[2024-04-22] MEDS: KCL 20 MEQ/D5/0.9% SOD CHL 1,000 ML 70 ML IV CONT (14:48)
[2024-04-22 14:58] LABS: Platelet Estimate Decreased (Adequate)
[2024-04-22 14:59] LABS: Anisocytosis 1+; Microcytosis 1+ (NORMAL); Ovalocytes 1+; Schistocytes None Seen
--- NOTE | 2024-04-22 15:08 | PC.NURSE ---
Notified Dr. Funk that the pt was unable to take PO potassium. Pt tried several times but was unable to swallow medication due to increased salty taste . Pt's repeat potassium was 3.5 and we have just stared KCl/D5/NS for IVF. No new orders received at this time.
[2024-04-22] MEDS: ACETAMINOPHEN 325 MG TABLET 650 MG PO (15:59)
--- NOTE | 2024-04-22 19:11 | PC.NURSE ---
Addendum entered by Staci Spaulding RN 04/22/24 19:15: Pt to room 8421. Pt has updated her family regarding transfer. Belonging sent with pt. IVF and lopez catheter continued at transfer Original Note: Pt transferred to [facility] via [facility]. [facility] updated that pt had left this facility.
--- NOTE | 2024-04-22 19:11 | PM.TDS ---
Transfer Discharge Sum: Prov Provider Date of admission: 04/22/24 12:08 Primary care physician: Hillary Olivo, PA Admitting clinician: Pedro Pablo Flores MD DS: Admitting Diagnosis Discharge Date 04/22/24 Admitting Diagnosis Nausea and vomiting DS: Discharge Diagnosis Discharge Diagnosis (1) Malaria: Code(s): B54 - Unspecified malaria Status: Acute (2) HIV antibody positive: Code(s): Z21 - Asymptomatic human immunodeficiency virus [HIV] infection status Status: Acute (3) Pancytopenia: Code(s): D61.818 - Other pancytopenia Status: Acute (4) Dehydration: Code(s): E86.0 - Dehydration Status: Acute (5) Electrolyte abnormality: Code(s): E87.8 - Other disorders of electrolyte and fluid balance, not elsewhere classified Status: Acute (6) Hypotension: Code(s): I95.9 - Hypotension, unspecified Status: Acute (7) Hyperbilirubinemia: Code(s): E80.6 - Other disorders of bilirubin metabolism Status: Acute (8) Abnormal urinalysis: Code(s): R82.90 - Unspecified abnormal findings in urine Status: Acute (9) Gastroenteritis: Code(s): K52.9 - Noninfective gastroenteritis and colitis, unspecified Status: Acute Transfer Discharge Sum: Med Medications Active and Home Medications: Home Medications acetaminophen 325 mg tablet (Tylenol) 325 mg PO Q6H PRN Fever Or Pain 04/20/24 [History Confirmed 04/20/24] ibuprofen 200 mg tablet 400 mg PO Q6H PRN Fever Or Pain 04/20/24 [History Confirmed 04/20/24] Active Medications Acetaminophen (Acetaminophen 325 Mg Tablet) 650 mg PO Q6H PRN PRN Reason: Mild Pain (1-3) or Fever Last Admin: 04/22/24 15:59 Dose: 650 mg Famotidine (Famotidine 20 Mg Tablet) 20 mg PO Q12HR PRAFUL Hydromorphone HCl (Hydromorphone Hcl Inj (*Crx) 1 Mg/Ml Syr) 0.5 mg IV PUSH Q4H PRN PRN Reason: Pain Rated 6 or Greater Last Admin: 04/21/24 14:04 Dose: 0.5 mg Potassium Chloride/Dextrose/Sod Cl (Kcl 20 Meq/D5/0.9% Sod Chl) 1,000 mls @ 70 mls/hr IV CONT .[id number] PRAFUL Last Admin: 04/22/24 14:48 Dose: 70 mls/hr Non-Formulary ( Artemether/Lumefantrine 20 Mg- 120 Mg Oral Tablet) 4 each PO Q12HR PRAFUL Stop: 04/23/24 09:01 Last Admin: 04/22/24 08:27 Dose: 4 each Trimethobenzamide HCl (Trimethobenzamide Hcl 200 Mg/2 Ml Vial) 200 mg IM Q6H PRN PRN Reason: Nausea And Vomiting Last Admin: 04/21/24 13:18 Dose: 200 mg Transfer Discharge Sum: Hosp Hospital Course Hospital course: Mery Guido is a 19yo healthy female who presents with nausea and vomiting. Please see H&P for details. The patient presents with fever, chills, sweats, headache, anorexia, nausea, vomiting, and loose stools. She was in [place] for 2 weeks in March and fell ill a few days after returning. Chemoprophylaxis for malaria was not taken. Blood smear was ordered showing ring formation is multiple cells. Malaria smear and pathology report pending. Patient started on Artemether/lumefantrine for 6 total doses. Hepatitis panel negative. TBili trending down and now normal. Hgb trending down but on IV fluids so some of this could be dilutional. Bedside test negative. She remained leukopenia and thrombocytopenic. Spoke with [facility] (Dr Montesinos) who recommended obtaining Artesunate given the severity and this was ordered. HIV testing was performed on admission and has returned positive for HIV-1 and/or HIV 2 Ab and positive for HIV-1 p24 Ag. Reflex HIV testing and viral load ordered and is pending. Patient was made aware of this finding and that this may be a false positive. Patient denies any risk factors for HIV. Malaria can cause thrombocytopenia and anemia. Leukopenia is usually mild. She had dehydration related to the gastroenteritis. CT A/P showing no acute process. Nausea better but still with abd pain. No eosinophilia to suggest GI parasites. Not eating much so will continue IV fluids but changed
--- NOTE | 2024-04-26 08:30 | PC.NURSE ---
-Spoke with Dr. Montesinos, Infectious disease physician at [facility], regarding pateints Malaria labs returning. Faxed to him at [phone].
[2024-04-26 19:38] LABS: HIV 1 2 Ag Ab 4th Gen w Rflxs REPEATEDLY REACTIVE (NON-REACTIVE); HIV 1 Ab Chg Test Yes; HIV 1 Antibody NEGATIVE (NEGATIVE); HIV 2 Ab Chg Test Yes; HIV 2 Antibody NEGATIVE (NEGATIVE)
[2024-04-30 11:53] LABS: HIV-1 RNA, Qual Chg Test Yes; HIV-1 RNA, Qual TMA NOT DETECTED
== END 2024-04-22 19:17 | disposition short-term general hospital (02) | DRG 724 ==
LOC: ANHED 17:03 → ANHIMU 17:29
PROVIDERS: Hospitalist; Physician Assistant; Admitting Provider Internal Medicine; Emergency Provider Emergency Medicine; PCP Physician Assistant; Visit Provider Internal Medicine
DX: B54 Unspecified malaria (principal); Z21 Asymptomatic human immunodeficiency virus [HIV] infection status; D61.818 Other pancytopenia; E86.0 Dehydration; E87.8 Other disorders of electrolyte and fluid balance, not elsewhere classified; I95.9 Hypotension, unspecified; E80.6 Other disorders of bilirubin metabolism; R82.90 Unspecified abnormal findings in urine; K52.9 Noninfective gastroenteritis and colitis, unspecified
CPT/HCPCS: 36415; 71046; 74177; 80048; 80053; 80074; 80307; 81001; 81025; 82247; 82248; 82607; 82728; 82746; 83540; 83550; 83605; 83615; 83690; 83735; 84100; 84145; 84439; 84443; 84480; 85025; 85046; 85055; 85610; 85652; 85730; 86140; 86701; 86702; 86703; 87040; 87086; 87207; 87389; 87637; 96361; 96365; 96372; 96374; 96375; 99285; A9270; G0378; G0379; G0432; J0613; J0696; J1170; J2405; J2765; J3250; J3475; J3480; J7030; J7040; J7120; P9045; Q9967

== ENCOUNTER 2025-01-06 09:57 | Outpatient (CLI) | payer OTHER, SELFPAY ==
--- NOTE | 2025-01-06 | ECG_ITS ---
Test Date: 2025-01-06 10:49:21 Measurements Intervals [place] Rate: 55 P: 62 GA: 188 QRS: 61 QRSD: 88 T: 64 QT: 406 QTc: 390 Interpretive Statements SINUS BRADYCARDIA WITH SINUS ARRHYTHMIA BORDERLINE ECG Compared to ECG 04/18/2024 15:05:58 HEART RATE HAS DECREASED Electronically Signed On 01-06-2025 10:56:19 CDT by Colby Iglesias D.O.
--- NOTE | ~2025-01-06 | XR_ITS ---
Clinical Indication: Chest pain PA and lateral views of the chest: Comparison: 04/22/2024 Findings: The lungs are clear, without evidence of focal consolidation or pleural effusion. Cardiome diastinal silhouette is within normal limits. Bones and soft tissues are unremarkable. Impression: Normal chest. Reviewed, dictated and finalized at location . Impression: Normal chest.
--- OUTSIDE RECORDS SUMMARY | 2025-01-06 10:43 | XMS_ITS | Data Portability ---
Author Organization [facility] [place] Ant[place] Address [address] [facility] [place] [address] Care Team Providers Care Tourist Agent Name Role Phone BRIELLE WELLS Primary Care Provider [phone] Assessment Encounter Date Assessment Date Assessment LastModified by Organization Details LastModified Time 12/30/2024 12/30/2024 40 min elliptical Not available 12/30/2024 12:03:51 Plan of Treatment Reminders Order Date Submit Date Provider Last Modified By Organization Details Last Modified Time Details Appointments LAB ONLY 2024 11:00A M Lab Not available Not available Not available Lab CMP, serum or plasma 2024 025 [facility], [address], [place], [address], 12/30/2024 12:04:20 iron + total iron-bind ing capacity (TIBC), serum 2024 025 [facility], [address], [place], [address], 01/06/2025 11:18:26 inflammat ion panel, serum or plasma 2024 025 [facility], [address], [address], [place], [address], 12/30/2024 12:04:20 D-dimer, quant, plasma 2024 025 [facility] Yip2022 [address], [address] [facility], [place], [address], 12/30/2024 12:04:19 CMP, serum or plasma 2024 025 [facility], [address], [address], [place], [address], 10/19/2024 22:07:16 LISBETH (antinucl ear antibodie s) screen, serum 2024 025 [facility], [address] [facility] [address], [address], [place], [address], 10/20/2024 15:10:56 TSH + free T4, serum 2024 025 [facility], [address] [facility], [address], [place], [address], 10/20/2024 15:10:58 CBC w/ auto diff 2024 025 [facility], [address] [facility] [address], [address], [place], [address], 10/19/2024 22:07:17 TIBC (total iron-bind ing capacity) , serum 2024 025 [facility], [facility] [address], [address], [place], [address], 10/20/2024 15:10:59 ferritin, serum or plasma 2024 025 [facility], [address] [place], [place] [address], [address], [place], [address], 10/20/2024 15:11:00 haptoglob in, serum 2023 024 [facility], [address], [address], [place], [address], 06/22/2024 12:13:07 ferritin, serum or plasma 2023 024 [facility], [address], [address], [place], [address], 06/22/2024 12:13:08 TIBC (total iron-bind ing capacity) , serum 2023 024 [facility], [address], [place], [address], 06/22/2024 12:13:06 CBC w/ auto diff 2023 024 [facility], [address], [address], [place], [address], 06/21/2024 22:07:25 haptoglob in, serum 2023 024 [facility], [address], [place], [address], 04/30/2024 09:13:17 CBC w/ auto diff 2023 024 [facility], [address], [address], [place], [address], 04/29/2024 21:07:56 Referral None recorded. Procedures None recorded. Surgeries None recorded. Imaging electroca rdiogram [address] (Imaging), [address], [place], [address], 12/30/2024 12:09:43 XR, chest, 2 view [address] (Imaging), [address], [place], [address], 12/30/2024 12:09:43 Medication Orders ferrous sulfate 325 mg (65 mg iron) tablet 2024 025 [facility] [place], [address], 12/30/2024 12:17:15 cetirizin e 10 mg tablet 2024 025 [facility], [address] [place], [address], 10/19/2024 15:43:59 Patient TargetsNo targets recorded. Patient Instructions Encounter Date Encounter Id Patient Instructions Last Modified By Organization Details Last Modified Time 04/29/2024 [id number] I have reviewed the provider's note and I agree with the documented assessment and plan. Srinivasa Garg [email or web address] Not available 05/08/2024 17:37:21 Reason for Referral None Reported. Results Created Date Observation Date Name Description Value Unit Range Abnormal Flag Note LastModifiedBy Organization Detail LastModifiedTime 04/29/20 24 04/29/2024 CBC WITH DIFFE RENTI AL/PL ATELE T WBC 7.2 x10e3 /uL 3.4-10 .8 Not Available [facility] [place] [facility] [address] [place], [address], 04/29/2024 21:07:56 04/29/20 24 04/29/2024 CBC WITH DIFFE RENTI AL/PL ATELE T RBC 3.10 x10e6 /uL 3.77-5 .28 below low normal Not Available [facility] [place] [facility] [address] [place], [address], 04/29/2024 21:07:56 04/29/20 24 04/29/2024 CBC WITH DIFFE RENTI AL/PL ATELE T hemoglobin 8.4 g/dL 11.1-1 5.9 below low normal Not Available [facility] [place] [facility] [address] [place], [address], 04/29/2024 21:07:56 04/29/20 24 04/29/2024 CBC WITH DIFFE RENTI AL/PL ATELE T hematocrit 26.7 % 34.0-4 6.6 below low normal Not Available [facility] [place] [facility] [address] [place], [address], 04/29/2024 21:07:56 04/29/20 24 04/29/2024 CBC WITH DIFFE RENTI AL/PL ATELE T MCV 86 fL 79-97 Not Available [facility] [place] [facility] [address] [place], [address], 04/29/2024 21:07:56 04/29/20 24 04/29/2024 CBC WITH DIFFE RENTI AL/PL ATELE T MCH 27.1 pg 26.6-3 3.0 Not Available [facility] [place] [facility] [address] [place], [address], 04/29/2024 21:07:56 04/29/20 24 04/29/2024 CBC WITH DIFFE RENTI AL/PL ATELE T MCHC 31.5 g/dL 31.5-3 5.7 Not Available [facility] [place] [facility] [address] [place], [address], 04/29/2024 21:07:56 04/29/20 24 04/29/2024 CBC WITH DIFFE RENTI AL/PL ATELE T RDW 13.9 % 11.5-1 4.5 Not Available [facility] [place] [facility] [address] [place], [address], 04/29/2024 21:07:56 04/29/20 24 04/29/2024 CBC WITH DIFFE RENTI AL/PL ATELE T platelets 420 x10e3 /uL 150-45 0 Not Available [facility] [place] [facility] [address] [place], [address], 04/29/2024 21:07:56 04/29/20 24 04/29/2024 CBC WITH DIFFE RENTI AL/PL ATELE T neutrophils - Test not perfo rmed Not Available [facility] [place] [facility] [address] [place], [address], 04/29/2024 21:07:56 04/29/20 24 04/29/2024 CBC WITH DIFFE RENTI AL/PL ATELE T lymphs - Test not perfo rmed Not Available [facility] [place] [facility] [address] [place], [address], 04/29/2024 21:07:56 04/29/20 24 04/29/2024 CBC WITH DIFFE RENTI AL/PL ATELE T monocytes - Test not perfo rmed Not Available [facility] [place] [facility] [address] [place], [address], 04/29/2024 21:07:56 04/29/20 24 04/29/2024 CBC WITH DIFFE RENTI AL/PL ATELE T eos - Test not perfo rmed Not Available [facility] [place] [facility] [address] [place], [address], 04/29/2024 21:07:56 04/29/20 24 04/29/2024 CBC WITH DIFFE RENTI AL/PL ATELE T lymphs (absolute) - Test not perfo rmed Not Available [facility] [place] [facility] [address] [place], [address], 04/29/2024 21:07:56 04/29/20 24 04/29/2024 CBC WITH DIFFE RENTI AL/PL ATELE T eos (absolute) - Test not perfo rmed Not Available [facility] [place] [facility] [address] [place], [address], 04/29/2024 21:07:56 04/29/20 24 04/29/2024 CBC WITH DIFFE RENTI AL/PL ATELE T baso (absolute) - Test not perfo rmed Not Available [facility] [place] [facility] [address] [place], [address], 04/29/2024 21:07:56 04/29/20 24 04/30/2024 HAPTO GLOBI N haptoglobin <10 mg/dL 33-278 below low normal Not Available [facility] ([facility]) [address] [facility], [place], [address], 04/30/2024 09:13:17 05/03/20 24 05/03/2024 COMP. METAB OLIC PANEL (14) glucose 74 mg/dL 70-99 Not Available [facility] [place] [facility] [address] [place], [address], 05/03/2024 22:07:31 05/03/20 24 05/03/2024 COMP. METAB OLIC PANEL (14) BUN 8 mg/dL 6-20 Not Available [facility] [place] [facility] [address] [place], [address], 05/03/2024 22:07:31 05/03/20 24 05/03/2024 COMP. METAB OLIC PANEL (14) creatinine 0.65 mg/dL 0.76-1 .27 below low normal Not Available [facility] [place] [facility] [address] [place], [address], 05/03/2024 22:07:31 05/03/20 24 05/03/2024 COMP. METAB OLIC PANEL (14) eGFR 128 >=60 Units for eGFR value s are mL/mi n/1.7 3 The eGFR Calcu latio n has not been valid ated for patie nts under the age of 18. If test resul ts are displ ayed for a patie nt under the age of 18, disre jamison that value . Not Available [facility] [place] [facility] [address] [place], [address], 05/03/2024 22:07:31 05/03/20 24 05/03/2024 COMP. METAB OLIC PANEL (14) BUN/creatini ne ratio 06-14 Not Available [facility] [address] [place], [address], 05/03/2024 22:07:31 05/03/20 24 05/03/2024 COMP. METAB OLIC PANEL (14) sodium 137 mmol/ L 134-14 4 Not Available [facility] [place] [facility] [address] [place] [address], [address], 05/03/2024 22:07:31 05/03/20 24 05/03/2024 COMP. METAB OLIC PANEL (14) potassium 4.4 mmol/ L 3.5-5. 2 Not Available [facility] [address] [place] [address], [address], 05/03/2024 22:07:31 05/03/20 24 05/03/2024 COMP. METAB OLIC PANEL (14) chloride 100 mmol/ L 96-106 Not Available [facility] [place] [facility] [address] [place] [address], [address], 05/03/2024 22:07:31 05/03/20 24 05/03/2024 COMP. METAB OLIC PANEL (14) carbon dioxide, total 26 mmol/ L 20-29 Not Available [facility] [place] [facility] [address] [place] [address], [address], 05/03/2024 22:07:31 05/03/20 24 05/03/2024 COMP. METAB OLIC PANEL (14) calcium 9.5 mg/dL 8.7-10 .2 Not Available [facility] [place] [facility] [address] [place] [address], [address], 05/03/2024 22:07:31 05/03/20 24 05/03/2024 COMP. METAB OLIC PANEL (14) protein, total 8.5 g/dL 6.0-8. 5 Not Available [facility] [place] [facility] [address] [place] [address], [address], 05/03/2024 22:07:31 05/03/20 24 05/03/2024 COMP. METAB OLIC PANEL (14) albumin 4.2 g/dL 4.0-5. 0 Not Available [facility] [place] [facility] [address] [place] [address], [address], 05/03/2024 22:07:31 05/03/20 24 05/03/2024 COMP. METAB OLIC PANEL (14) globulin, total 4.3 g/dL 1.5-4. 5 Not Available [facility] [place] [facility] [address] [place], [address], 05/03/2024 22:07:31 05/03/20 24 05/03/2024 COMP. METAB OLIC PANEL (14) A/G ratio 1.0 1.2-2. 2 below low normal Not Available [facility] [address] [place] [address], [address], 05/03/2024 22:07:31 05/03/20 24 05/03/2024 COMP. METAB OLIC PANEL (14) bilirubin, total 0.6 mg/dL 0.0-1. 2 Not Available [facility] [address] [place] [address], [address], 05/03/2024 22:07:31 05/03/20 24 05/03/2024 COMP. METAB OLIC PANEL (14) alkaline phosphatase 63 IU/L 44-121 Not Available [facility] [address] [place] [address], [address], 05/03/2024 22:07:31 05/03/20 24 05/03/2024 COMP. METAB OLIC PANEL (14) AST (SGOT) 22 IU/L 0-40 Not Available [facility] Department [address] [place] [address], [address], 05/03/2024 22:07:31 05/03/20 24 05/03/2024 COMP. METAB OLIC PANEL (14) ALT (SGPT) 27 IU/L 0-32 Not Available [facility] Department [address] [place] [address], [address], 05/03/2024 22:07:31 05/03/20 24 05/03/2024 CBC WITH DIFFE RENTI AL/PL ATELE T WBC 4.1 x10e3 /uL 3.4-10 .8 Not Available [facility] [place] [facility] [address] [place], [address], 05/03/2024 22:07:31 05/03/20 24 05/03/2024 CBC WITH DIFFE RENTI AL/PL ATELE T RBC 2.92 x10e6 /uL 3.77-5 .28 below low normal Not Available [facility] [place] [facility] [address] [place], [address], 05/03/2024 22:07:31 05/03/20 24 05/03/2024 CBC WITH DIFFE RENTI AL/PL ATELE T hemoglobin 8.3 g/dL 11.1-1 5.9 below low normal Not Available [facility] [place] [facility] [address] [place], [address], 05/03/2024 22:07:31 05/03/20 24 05/03/2024 CBC WITH DIFFE RENTI AL/PL ATELE T hematocrit 26.8 % 34.0-4 6.6 below low normal Not Available [facility] [place] [facility] [address] [place], [address], 05/03/2024 22:07:31 05/03/20 24 05/03/2024 CBC WITH DIFFE RENTI AL/PL ATELE T MCV 92 fL 79-97 Not Available [facility] [place] [facility] [address] [place], [address], 05/03/2024 22:07:31 05/03/20 24 05/03/2024 CBC WITH DIFFE RENTI AL/PL ATELE T MCH 28.4 pg 26.6-3 3.0 Not Available [facility] [place] [facility] [address] [place], [address], 05/03/2024 22:07:31 05/03/20 24 05/03/2024 CBC WITH DIFFE RENTI AL/PL ATELE T MCHC 31.0 g/dL 31.5-3 5.7 below low normal Not Available [facility] [place] [facility] [address] [place], [address], 05/03/2024 22:07:31 05/03/20 24 05/03/2024 CBC WITH DIFFE RENTI AL/PL ATELE T RDW 17.2 % 11.5-1 4.5 above high normal Not Available [facility] [place] [facility] [address] [place], [address], 05/03/2024 22:07:31 05/03/20 24 05/03/2024 CBC WITH DIFFE RENTI AL/PL ATELE T platelets 288 x10e3 /uL 150-45 0 Not Available [facility] [place] [facility] [address] [place], [address], 05/03/2024 22:07:31 05/03/20 24 05/03/2024 CBC WITH DIFFE RENTI AL/PL ATELE T neutrophils 34 % notest b. Not Available [facility] [address] [place], [address], 05/03/2024 22:07:31 05/03/20 24 05/03/2024 CBC WITH DIFFE RENTI AL/PL ATELE T lymphs 52 % notest b. Not Available [facility] [address] [place], [address], 05/03/2024 22:07:31 05/03/20 24 05/03/2024 CBC WITH DIFFE RENTI AL/PL ATELE T monocytes 13 % notest b. Not Available [facility] [address] [place], [address], 05/03/2024 22:07:31 05/03/20 24 05/03/2024 CBC WITH DIFFE RENTI AL/PL ATELE T eos 1 % notest b. Not Available [facility] [address] [place], [address], 05/03/2024 22:07:31 05/03/20 24 05/03/2024 CBC WITH DIFFE RENTI AL/PL ATELE T basos 1 % notest b. Not Available [facility] [address] [place], [address], 05/03/2024 22:07:31 05/03/20 24 05/03/2024 CBC WITH DIFFE RENTI AL/PL ATELE T neutrophils (absolute) 1.4 x10e3 /uL 1.4-7. 0 Not Available [facility] [place] [facility] [address] [place], [address], 05/03/2024 22:07:31 05/03/20 24 05/03/2024 CBC WITH DIFFE RENTI AL/PL ATELE T lymphs (absolute) 2.1 x10e3 /uL 0.7-3. 1 Not Available [facility] [address] [place], [address], 05/03/2024 22:07:31 05/03/20 24 05/03/2024 CBC WITH DIFFE RENTI AL/PL ATELE T monocytes(ab solute) 0.5 x10e3 /uL 0.1-0. 9 Not Available [facility] [address] [place], [address], 05/03/2024 22:07:31 05/03/20 24 05/03/2024 CBC WITH DIFFE RENTI AL/PL ATELE T eos (absolute) 0.0 x10e3 /uL 0.0-0. 4 Not Available [facility] [address] [place], [address], 05/03/2024 22:07:31 05/03/20 24 05/03/2024 CBC WITH DIFFE RENTI AL/PL ATELE T baso (absolute) 0.0 x10e3 /uL 0.0-0. 2 Not Available [facility] [address] [place], [address], 05/03/2024 22:07:31 05/03/20 24 05/03/2024 CBC WITH DIFFE RENTI AL/PL ATELE T immature granulocytes 0.2 % notest b. Not Available [facility] [address] [place], [address], 05/03/2024 22:07:31 05/03/20 24 05/03/2024 CBC WITH DIFFE RENTI AL/PL ATELE T immature grans (abs) 0.0 x10e3 /uL 0.0-0. 1 Not Available [facility] [address] [place], [address], 05/03/2024 22:07:31 05/03/20 24 05/03/2024 CBC WITH DIFFE RENTI AL/PL ATELE T NRBC 1 % 0-0 above high normal Not Available [facility] [address] [place], [address], 05/03/2024 22:07:31 05/03/20 24 05/04/2024 HAPTO GLOBI N haptoglobin <10 mg/dL 33-278 below low normal Not Available [facility] ([facility]) [address] [place], [address], 05/04/2024 10:13:59 05/03/20 24 05/04/2024 COOMB S', DIREC T luna', direct NEGATI VE negati ve Not Available [facility] ([facility]) [address] [facility], [place], [address], 05/04/2024 10:14:00 06/21/20 24 06/21/2024 CBC WITH DIFFE RENTI AL/PL ATELE T WBC 5.4 x10e3 /uL 3.4-10 .8 Not Available [facility] [address] [place], [address], 06/21/2024 22:07:24 06/21/20 24 06/21/2024 CBC WITH DIFFE RENTI AL/PL ATELE T RBC 3.85 x10e6 /uL 3.77-5 .28 Not Available [facility] [address] [place], [address], 06/21/2024 22:07:24 06/21/20 24 06/21/2024 CBC WITH DIFFE RENTI AL/PL ATELE T hemoglobin 10.3 g/dL 11.1-1 5.9 below low normal Not Available [facility] [address] [place], [address], 06/21/2024 22:07:24 06/21/20 24 06/21/2024 CBC WITH DIFFE RENTI AL/PL ATELE T hematocrit 32.6 % 34.0-4 6.6 below low normal Not Available [facility] [address] [place], [address], 06/21/2024 22:07:24 06/21/20 24 06/21/2024 CBC WITH DIFFE RENTI AL/PL ATELE T MCV 85 fL 79-97 Not Available [facility] [address] [place], [address], 06/21/2024 22:07:24 06/21/20 24 06/21/2024 CBC WITH DIFFE RENTI AL/PL ATELE T MCH 26.8 pg 26.6-3 3.0 Not Available [facility] [address] [place], [address], 06/21/2024 22:07:24 06/21/20 24 06/21/2024 CBC WITH DIFFE RENTI AL/PL ATELE T MCHC 31.6 g/dL 31.5-3 5.7 Not Available [facility] [address] [place], [address], 06/21/2024 22:07:24 06/21/20 24 06/21/2024 CBC WITH DIFFE RENTI AL/PL ATELE T RDW 13.0 % 11.5-1 4.5 Not Available [facility] [address] [place], [address], 06/21/2024 22:07:24 06/21/20 24 06/21/2024 CBC WITH DIFFE RENTI AL/PL ATELE T platelets 282 x10e3 /uL 150-45 0 Not Available [facility] [address] [place], [address], 06/21/2024 22:07:24 06/21/20 24 06/21/2024 CBC WITH DIFFE RENTI AL/PL ATELE T neutrophils 33 % notest b. Not Available [facility] [address] [place], [address], 06/21/2024 22:07:24 06/21/20 24 06/21/2024 CBC WITH DIFFE RENTI AL/PL ATELE T lymphs 56 % notest b. Not Available [facility] [address] [place], [address], 06/21/2024 22:07:24 06/21/20 24 06/21/2024 CBC WITH DIFFE RENTI AL/PL ATELE T monocytes 10 % notest b. Not Available [facility] [address] [place], [address], 06/21/2024 22:07:24 06/21/20 24 06/21/2024 CBC WITH DIFFE RENTI AL/PL ATELE T eos 1 % notest b. Not Available [facility] [address] [place], [address], 06/21/2024 22:07:24 06/21/20 24 06/21/2024 CBC WITH DIFFE RENTI AL/PL ATELE T basos 0 % notest b. Not Available [facility] [address] [place], [address], 06/21/2024 22:07:24 06/21/20 24 06/21/2024 CBC WITH DIFFE RENTI AL/PL ATELE T neutrophils (absolute) 1.8 x10e3 /uL 1.4-7. 0 Not Available [facility] [address] [place], [address], 06/21/2024 22:07:24 06/21/20 24 06/21/2024 CBC WITH DIFFE RENTI AL/PL ATELE T lymphs (absolute) 3.0 x10e3 /uL 0.7-3. 1 Not Available [facility] [address] [place] [address], [address], 06/21/2024 22:07:24 06/21/20 24 06/21/2024 CBC WITH DIFFE RENTI AL/PL ATELE T monocytes(ab solute) 0.5 x10e3 /uL 0.1-0. 9 Not Available [facility] [address] [place] [address], [address], 06/21/2024 22:07:24 06/21/20 24 06/21/2024 CBC WITH DIFFE RENTI AL/PL ATELE T eos (absolute) 0.1 x10e3 /uL 0.0-0. 4 Not Available [facility] [address] [place], [address], 06/21/2024 22:07:24 06/21/20 24 06/21/2024 CBC WITH DIFFE RENTI AL/PL ATELE T baso (absolute) 0.0 x10e3 /uL 0.0-0. 2 Not Available [facility] [address] [place], [address], 06/21/2024 22:07:24 06/21/20 24 06/21/2024 CBC WITH DIFFE RENTI AL/PL ATELE T immature granulocytes 0.2 % notest b. Not Available [facility] [address] [place], [address], 06/21/2024 22:07:24 06/21/20 24 06/21/2024 CBC WITH DIFFE RENTI AL/PL ATELE T immature grans (abs) 0.0 x10e3 /uL 0.0-0. 1 Not Available [facility] [address] [place], [address], 06/21/2024 22:07:24 06/21/20 24 06/21/2024 CBC WITH DIFFE RENTI AL/PL ATELE T NRBC 0 % 0-0 Not Available [facility] [address] [facility], [place], [address], 06/21/2024 22:07:24 06/21/20 24 06/22/2024 IRON AND TIBC iron bind.cap.(TI BC) 371 ug/dL 250-45 0 Not Available [facility] ([facility]) [address] [place], [address], 06/22/2024 12:13:06 06/21/20 24 06/22/2024 IRON AND TIBC UIBC 328 ug/dL 131-42 5 Not Available [facility] ([facility]) [address] [place], [address], 06/22/2024 12:13:06 06/21/20 24 06/22/2024 IRON AND TIBC iron 43 ug/dL 27-159 Not Available [facility] ([facility]) [address] [place], [address], 06/22/2024 12:13:06 06/21/20 24 06/22/2024 IRON AND TIBC iron saturation 12 % 15-55 below low normal Not Available [facility] ([facility]) [address] [place], [address], 06/22/2024 12:13:06 06/21/20 24 06/22/2024 HAPTO GLOBI N haptoglobin <10 mg/dL 33-278 below low normal Not Available [facility] ([facility]) [address] [place], [address], 06/22/2024 12:13:07 06/21/20 24 06/22/2024 OSMAN TIN ferritin 9 NG/mL 15-150 below low normal Not Available [facility] ([facility]) [address] [facility], [place], [address], 06/22/2024 12:13:08 10/19/19 25 10/19/2024 COMP. METAB OLIC PANEL (14) glucose 101 mg/dL 70-99 above high normal Not Available [facility] [address] [place] [address], [address], 10/19/2024 22:07:16 10/19/19 25 10/19/2024 COMP. METAB OLIC PANEL (14) BUN 12 mg/dL 6-20 Not Available [facility] [address] [place] [address], [address], 10/19/2024 22:07:16 10/19/19 25 10/19/2024 COMP. METAB OLIC PANEL (14) creatinine 0.82 mg/dL 0.76-1 .27 Not Available [facility] [address] [place], [address], 10/19/2024 22:07:16 10/19/19 25 10/19/2024 COMP. METAB OLIC PANEL (14) eGFR 104 >=60 Units for eGFR value s are mL/mi n/1.7 3 The eGFR Calcu latio n has not been valid ated for patie nts under the age of 18. If test resul ts are displ ayed for a patie nt under the age of 18, disre jamison that value . Not Available [facility] [address] [place], [address], 10/19/2024 22:07:16 10/19/19 25 10/19/2024 COMP. METAB OLIC PANEL (14) BUN/creatini ne ratio 14 9-23 Not Available [facility] [address] [place], [address], 10/19/2024 22:07:16 10/19/19 25 10/19/2024 COMP. METAB OLIC PANEL (14) sodium 139 mmol/ L 134-14 4 Not Available [facility] [address] [place], [address], 10/19/2024 22:07:16 10/19/19 25 10/19/2024 COMP. METAB OLIC PANEL (14) potassium 4.0 mmol/ L 3.5-5. 2 Not Available [facility] [address] [place] [address], [address], 10/19/2024 22:07:16 10/19/19 25 10/19/2024 COMP. METAB OLIC PANEL (14) chloride 103 mmol/ L 96-106 Not Available [facility] [place] Department [address] [place] [address], [id number], 10/19/2024 22:07:16 10/19/19 25 10/19/2024 COMP. METAB OLIC PANEL (14) carbon dioxide, total 26 mmol/ L 20-29 Not Available [facility] [place] [address] [place], [address], 10/19/2024 22:07:16 10/19/19 25 10/19/2024 COMP. METAB OLIC PANEL (14) calcium 9.4 mg/dL 8.7-10 .2 Not Available [facility] [place] Department [address] [place] [address], [id number], 10/19/2024 22:07:16 10/19/19 25 10/19/2024 COMP. METAB OLIC PANEL (14) protein, total 7.5 g/dL 6.0-8. 5 Not Available [facility] [place] [address] [place], [address], 10/19/2024 22:07:16 10/19/19 25 10/19/2024 COMP. METAB OLIC PANEL (14) albumin 4.4 g/dL 4.0-5. 0 Not Available [facility] [place] [facility] [address] [place], [address], 10/19/2024 22:07:16 10/19/19 25 10/19/2024 COMP. METAB OLIC PANEL (14) globulin, total 3.1 g/dL 1.5-4. 5 Not Available [facility] [place] [facility] [address] [place], [address], 10/19/2024 22:07:16 10/19/19 25 10/19/2024 COMP. METAB OLIC PANEL (14) A/G ratio 1.0 1.2-2. 2 below low normal Not Available [facility] [place] [address] [place], [address], 10/19/2024 22:07:16 10/19/19 25 10/19/2024 COMP. METAB OLIC PANEL (14) bilirubin, total 0.2 mg/dL 0.0-1. 2 Not Available [facility] [place] [address] [place], [address], 10/19/2024 22:07:16 10/19/19 25 10/19/2024 COMP. METAB OLIC PANEL (14) alkaline phosphatase 54 IU/L 44-121 Not Available [facility] Department [address] [place], [address], 10/19/2024 22:07:16 10/19/19 25 10/19/2024 COMP. METAB OLIC PANEL (14) AST (SGOT) 18 IU/L 0-40 Not Available [facility] Department [address] [place], [address], 10/19/2024 22:07:16 10/19/19 25 10/19/2024 COMP. METAB OLIC PANEL (14) ALT (SGPT) 9 IU/L 0-32 Not Available [facility] Department [address] [place], [address], 10/19/2024 22:07:16 10/19/19 25 10/19/2024 CBC WITH DIFFE RENTI AL/PL ATELE T WBC 6.0 x10e3 /uL 3.4-10 .8 Not Available [facility] [place] Department [address] [place], [address], 10/19/2024 22:07:17 10/19/1910/19/2024 CBC WITH DIFFE RENTI AL/PL ATELE T RBC 4.23 x10e6 /uL 3.77-5 .28 Not Available [facility] [place] Department [address] [place], [address], 10/19/2024 22:07:17 10/19/19 25 10/19/2024 CBC WITH DIFFE RENTI AL/PL ATELE T hemoglobin 11.3 g/dL 11.1-1 5.9 Not Available [facility] [place] Department [address] [place], [address], 10/19/2024 22:07:17 10/19/19 25 10/19/2024 CBC WITH DIFFE RENTI AL/PL ATELE T hematocrit 35.2 % 34.0-4 6.6 Not Available [facility] [place] Department [address] [place], [address], 10/19/2024 22:07:17 10/19/1910/19/2024 CBC WITH DIFFE RENTI AL/PL ATELE T MCV 83 fL 79-97 Not Available [facility] [place] Department [address] [place], [address], 10/19/2024 22:07:17 10/19/19 25 10/19/2024 CBC WITH DIFFE RENTI AL/PL ATELE T MCH 26.7 pg 26.6-3 3.0 Not Available [facility] [place] Department [address] [place], [address], 10/19/2024 22:07:17 10/19/19 25 10/19/2024 CBC WITH DIFFE RENTI AL/PL ATELE T MCHC 32.1 g/dL 31.5-3 5.7 Not Available [facility] Department [address] [place], [address], 10/19/2024 22:07:17 10/19/19 25 10/19/2024 CBC WITH DIFFE RENTI AL/PL ATELE T RDW 13.4 % 11.5-1 4.5 Not Available [facility] Department [address] [place], [address], 10/19/2024 22:07:17 10/19/19 25 10/19/2024 CBC WITH DIFFE RENTI AL/PL ATELE T platelets 284 x10e3 /uL 150-45 0 Not Available [facility] [place] Department [address] [place], [address], 10/19/2024 22:07:17 10/19/19 25 10/19/2024 CBC WITH DIFFE RENTI AL/PL ATELE T neutrophils 43 % notest b. Not Available [facility] [place] Department [address] [place], [address], 10/19/2024 22:07:17 10/19/19 25 10/19/2024 CBC WITH DIFFE RENTI AL/PL ATELE T lymphs 47 % notest b. Not Available [facility] [place] Department [address] [place], [address],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
--- OUTSIDE RECORDS SUMMARY | 2025-01-06 10:44 | XMS_ITS | Clinical Summary ---
Author Organization [facility] Address [address] [place] [address] Care Team Providers Care Mediator Name Role Phone Bernardo Philippe MD Primary Care Provider [phone] Source Comments [facility],non-owned Affiliates and Associated Physician Practices is amultiple site organization consisting of ambulatory clinics and hospital sitesin [place], [place], [place]. This disclosure is being madepursuant to the Care Everywhere program and may not contain all information available regarding this patient. Last updated 18.[facility] Allergies No known active allergies Medications * Be aware that medications may not be up to date on this document. Alwaysverify current medications with the patient. No known medications Active Problems Problem Noted Date Diagnosed Date Peripheral retinal scars, unspecified laterality 01/08/2022 Encounters Date Type Department Care Team Description 12/03/2024 Travel from Last 3 Months Social History Tobacco Use Types Packs/Day Years Used Date Smoking Tobacco: Never Smokeless Tobacco: Never Alcohol Use Standard Drinks/Week Comments Never 0 (1 standard drink = 0.6 oz pur e alcohol) AUDIT-C Answer Date Recorded Frequency of Alcohol Consumption Never 05/10/2019 Average Number of Drinks Not on file 019 Frequency of Binge Drinking Not on file 04/22 Comments Unknown Sex and Gender Information Value Date Recorded Sex Assigned at Not on file Legal Sex Female 10:39 AM CDT Gender Identity Not on file Sexual Orientation Not on file Plan of Treatment Upcoming Encounters Date Type Department Care Team (Late st Contact Info) Description 02/21/2025 9:00 AM CDT Office Visit [facility] - Op[facility]mology [address], [place] [address] Charles Williamson, [place] [address] [place] [address] Health Maintenance Due Date Last Done Comments PAP SMEAR 2003 HIV SCREENING 2018 HPV VACCINE (1 - 3-dose series) 2018 CHLAMYDIA/GONORRHEA SCREENING 2019 MENINGOCOCCAL (Group B) VACC INE SHARED DECISION-MAKING (1 of 2 - Standard) 2019 HEPATITIS C SCREENING 02/09/2021 DTAP/TDAP/TD VACCINES (1 - Tdap) 2022 HEPATITIS B VACCINE (1 of 3 - 19+ 3-dose series) 2022 COVID-19 VACCINE (1 - 2023-2 5 season) 2024 DEPRESSION SCREENING 09/22/2024 INFLUENZA VACCINE (Season Ended) 2025 ZOSTER VACCINE (1 of 2) 2053 HIB VACCINE Aged Out No longer eligi ble based on patient's age to complete this topic MENINGOCOCCAL GROUPS A/C/Y/W VACCINE Aged Out No longer eligible b ased on patient's age to complete this topic PNEUMOCOCCAL VACCINE Aged Out No long er eligible based on patient's age to complete this topic Insurance [facility] * Guarantor: ZACH GUIDO Account Type Relation to Patient Date of Phone Billing Address Personal/Family 2004 [address] * Guarantor: AKINLAJA,FUNMILOLA Account Type Relation to Patient Date of Phone Billing Address Personal/Family [address] [place] [phone] [facility] SELF PAY NO INSURANCE Member Subscriber Plan / Payer (Ef fective for All Dates) Name:Shanta Gudiodmforeign H Member ID:Not on file Relation to Subscriber:Not on file Name:ELIZABETH GUIDOLIVEDMFOREIGN Subscriber ID:Not on file Address: [address] [place], [place] [id number] Payer ID:Not on file Group ID:Not on file Type:Self Pay Address: [place], [place] * Guarantor: ELIZABETH GUIDOMILOFOREIGN Account Type Relation to Patient Date of Phone Billing Address Personal/Family [address] [place] [address] [facility] SELF PAY NO INSURANCE Member Subscriber Plan / Payer (Ef fective for All Dates) Name:Elizabeth Guidomilola H Member ID:Not on file Relation to Subscriber:Not on file Name:BENJI GUIDO Subscriber ID:Not on file Address: [address] [place] [phone] Payer ID:Not on file Group ID:Not on file Type:Self Pay Address: [place], [place] * Guarantor: BENJI GUIDO Account Type Relation to Patient Date of Phone Billing Address Personal/Family [address] [place] [address] [facility] SELF PAY NO INSURANCE Member Subscriber Plan / Payer (Ef fective for All Dates) Name:Shanta Guidodmforeign Antunez Member ID:Not on file Relation to Subscriber:Not on file Name:BENJI GUIDO Subscriber ID:Not on file Address: [address] [place] [address] Payer ID:Not on file Group ID:Not on file Type:Self Pay Address: [place], [place] Care Teams Mediator Relationship Specialty Start Date End Date Bernardo Philippe MD PCP - General 05/10/19
--- OUTSIDE RECORDS SUMMARY | 2025-01-06 10:44 | XMS_ITS | Continuity of Care Document ---
Author Name [facility] Organization [facility] Care Team Providers Care Correspondence Representative Name Role Phone [facility] Unavailable Unavailable Procedures Combined list of: 1) Procedures from [facility] facilities going back up to thelast 18 months, not all MD non-surgical procedures are included; 2) All procedures from the Department of [facility] facilities. Procedure Procedure Type Code Date Perfomer Comments Sourc e No data available for this section Ambulatory P harmacy Social History Combined list of available smoking, tobacco, and other social history from [facility] facilities. Social History Type Response Date Comment Sourc e Sexual Orientation Ambula tory Pharmacy Gender identity Ambulator y Pharmacy Sex Representation Female (finding) Unknown Organization Assessment and Plan Combined list of future care activities from Department of [facility] and [facility] facilities (e.g., assessment and plan notes, appointments, orders, and referrals). Additional future care activities may be listed in the Plan of Care section. Result Assessment and Plan Date Source Assessment and Plan No data available for this section 01/06/2025 Ambulatory Pharmacy Functional Status Combined list of recent functional and cognitive assessments recorded at [facility] ([facility] Functional Osborn Measurement (FIM) Scale: 1 = Total Assistance (Subject = 0% +), 2 = Maximal Assistance (Subject = 25% +), 3 = Moderate Assistance (Subject = 50% +), 4 = Minimal Assistance (Subject = 75% +), 5 = Supervision, 6 = Modified Osborn (Device), 7 = Complete Osborn (Timely, Safely). Assessment Date/Time Source Assessment Type Assessment Skill Assessment Score Assessment Details No data available for this section
--- OUTSIDE RECORDS SUMMARY | 2025-01-06 10:44 | XMS_ITS | Encounter Summary ---
Author Organization [facility] Address [address] [place] [address] Care Team Providers Care Hockey Scout Name Role Phone Bernardo Philippe MD Primary Care Provider [phone] Reason for Visit * Reason Onset Date Comments Question 10/29/2023 Encounter Details Date Type Department Care Team (Late st Contact Info) Description 10/29/2023 Telephone [facility]mology [address] [place] [address] Dorothy Edwards M, OD [address] [facility] [place] [address] Question Social History Tobacco Use Types Packs/Day Years [...] on file Sexual Orientation Not on file documented as of this encounter Miscellaneous Notes * Telephone Encounter - Jaki Irwin - 10/29/2023 9:47 AM CST Pt mother called with questions regarding her daughter's eye. She is having uncontrolled itching and would like a call back. CB# [phone] ACE ATTENDANT documented in this encounter Plan of Treatment Upcoming Encounters Date Type Department Care Team (Late st Contact Info) Description 02/21/2025 9:00 AM CDT Office Visit [facility] - Op[facility]mology [address] [place] [phone] Charles Williamson, [place] [address] [place] [address] documented as of this encounter Visit Diagnoses Not on filedocumented in this encounter Care Teams Hockey Scout Relationship Specialty Start Date End Date Bernardo Philippe MD PCP - General 05/10/19 documented as of this encounter
[2025-01-06 11:32] LABS: Iron 53 ug/dL (37-170)
[2025-01-06 11:34] LABS: Alanine Aminotransferase 13 U/L (6-35); Albumin Level 4.2 g/dL (3.5-5.1); Alkaline Phosphatase 45 U/L (38-126); Anion Gap 7 mmol/L (4-12); Aspartate Amino Transferase 25 U/L (14-36); Bilirubin,Total 0.5 mg/dL (0.2-1.3); Blood Urea Nitrogen 8 mg/dL (7-17); CRP < 0.5 mg/dL (<1.0); Calcium 8.9 mg/dL (8.4-10.2); Carbon Dioxide 28 mmol/L (22-30); Chloride 104 mmol/L (98-107); Estimated Glomerular Filt Rate > 60; Glucose 90 mg/dL (65-110); Sodium 139 mmol/L (137-145)
[2025-01-06 11:42] LABS: Percent Iron Saturation 13 % (20-50)
[2025-01-06 11:44] LABS: D Dimer 0.22 ug/mL (<0.48)
[2025-01-06 12:48] LABS: Erythrocyte Sedimentation Rate 15 mm/hr (0-20)
== END 2025-01-06 09:58 | disposition home or self-care (01) ==
PROVIDERS: PCP Physician Assistant; Visit Provider Physician Assistant
DX: D50.9 Iron deficiency anemia, unspecified (principal); R07.89 Other chest pain; R00.1 Bradycardia, unspecified; I49.8 Other specified cardiac arrhythmias
CPT/HCPCS: 36415; 71046; 80053; 83540; 83550; 85380; 85652; 86140; 93005